=== PATIENT | male | born 1955 | race Caucasian/White ===

== ENCOUNTER → 2018-01-25 | Outpatient (CLI) | payer OTHER ==
--- NOTE | 2018-01-25 09:25 | DIAGNOSTIC IMAGING REPORT ---
KUB HISTORY: Follow-up study in a patient with history of nephrolithiasis N20.0 COMPARISON: Abdominal radiographs 12/05/2016. FINDINGS: The bowel gas pattern is non-obstructive. There is no organomegaly. Unchanged 6 mm calculus of the interpolar right kidney. No definite left nephrolithiasis or ureteral calculi identified. Phleboliths of the right hemipelvis is unchanged. Surgical clips of the right upper quadrant abdomen suggest prior cholecystectomy. Mild to moderate volume of formed colonic stool. No pneumoperitoneum or pneumatosis. No fracture. Degenerative changes of the hips and spine. IMPRESSION: Unchanged 6 mm calculus of the interpolar right kidney. No ureteral calculi identified. Electronically signed by: Franc Cantor M.D. 01/25/2018 9:24 AM Dictated Date/Time: 01/25/2018 9:23 AM
== END | disposition home or self-care (01) ==
LOC: C.RAD1850 09:11
PROVIDERS: ATTEND Urology
DX: N20.0 Calculus of kidney (principal)